=== PATIENT | male | born 1980 | race Two or more races ===

== ENCOUNTER 2016-11-29 23:28 | Emergency (ER) | payer OTHER ==
[2016-11-29 23:40] VITALS: BP 146/95; PULSE 80; TEMP 97.9; BMI 32.5
--- NOTE | 2016-11-29 23:54 | PDOC ---
History of Present Illness - General Chief Complaint: Pain Stated Complaint: PAIN Time Seen by Provider: 11/29/16 23:39 - History of Present Illness Initial Comments: This 36-year-old man with no known previous medical problems presents with several week history of progressive shortness of breath with exertion associated with chest discomfort. Today, patient was visiting his family in the area . He was brought here by family members for evaluation. Patient states that over the last several weeks he has not able to use treadmill at his gym because of shortness of breath after several minutes, even at low rate of speed. Sometimes shortness of breath is accompanied by chest tightness which he describes as occurring in the middle of his chest. He has not had wheezing/ cough/fever. Family member has taken the patient's blood pressure in the past on home monitor and it is commonly elevated(systolic as high as 200 mmHg). Patient states that he has taken multiple stimulants in the past including cocaine but has not used any for more than 10 years. He also has a history of using anabolic steroids. Coronary artery disease risk factors: Positive for family history(father had first MA in 40s reportedly). No diagnosis of hypertension has been made. He has no history of diabetes mellitus, hyperlipidemia or smoking On no medications No known ALLERGIES Past History - Past Medical History Allergies/Adverse Reactions: Allergies Allergy/AdvReac Type Severity Reaction Status Date / Time No Known Allergies Allergy Unverified 11/29/16 23:36 Home Medications: Ambulatory Orders Atorvastatin Ca [Lipitor] 20 mg PO HS #14 tablet 11/30/16 - Psycho/Social/Smoking Cessation Hx Anxiety: No Suicidal Ideation: No Smoking History: Never smoked Review of Systems - Review of Systems Able to Perform ROS?: Yes Comments:: 12 point review of systems is negative except for what is noted in the history of present illness *Physical Exam - Vital Signs Last Vital Signs Temp Pulse Resp BP Pulse Ox 97.9 F 80 16 146/95 100 11/29/16 23:36 11/29/16 23:36 11/29/16 23:36 11/29/16 23:36 11/29/16 23:36 - Physical Exam Comments: GENERAL: Adult male, alert and oriented 3, in no acute distress HEAD: Normal with no signs of trauma. EYES: PERRLA, EOMI, sclera anicteric, conjunctiva clear. ENT: Ears normal, nares patent, oropharynx clear without exudates. Dry mucous membranes. NECK: Normal range of motion, supple without lymphadenopathy, JVD, or masses. LUNGS: Breath sounds equal, clear to auscultation bilaterally. No wheezes, and no crackles. HEART:Regular rate and rhythm, normal S1 and S2 without murmur, rub or gallop. ABDOMEN:.normal bowel sounds No guarding,tenderness or rebound.No masses No distention. EXTREMITIES: Normal range of motion, no edema. No clubbing or cyanosis. No erythema, or tenderness. NEUROLOGICAL: Cranial nerves II through XII grossly intact. Normal speech. No focal neurological deficits. MUSCULOSKELETAL: Back non-tender to palpation, no CVA tenderness SKIN: Warm, Dry, normal turgor, no rashes or lesions noted. 12-lead electrocardiogram is performed and interpreted by me. This shows normal sinus rhythm at 80 bpm; axis, intervals and wave forms are all normal. ED Treatment Course - LABORATORY CBC & Chemistry Diagram: 11/30/16 00:30 11/30/16 00:30 Progress Note - Progress Note Progress Note: This 36-year-old man without significant past medical history presents with several weeks of exertional shortness of breath and chest pain. Patient and family member accompanying him have stated that he has had elevated blood pressure readings on home monitor in the last several weeks. There is a family history of coronary artery disease, hypertension and hyperlipidemia. Blood pressure on presentation now is 146/95. Exam, as noted, is normal. Twelve-lead electrocardiogram is performed and shows normal sinus rhythm at 80 bpm; waveforms, axis and intervals are all normal. No evidence of acute ST or T -wave abnormalities. CBC, chemistry profile and cardiac enzymes will be sent Because of the patient's strong family history of hyperlipidemia, family members asked if lipid profile could be performed, although patient is not fasting currently. Laboratory evaluation, including cardiac enzymes, essentially normal Nonfasting lipid profile shows marked increase in triglycerides as well as LDL. It was strongly suggested to the patient that he follow up with a medical doctor within the next 48 hours. The patient does not live in the area (lives in [place], [place]) but family members state that patient will be followed up in the very near future. They asked if staff and drug could be prescribed until he is seen by a general medical doctor and prescription for Lipitor 20 mg daily will be transmitted to his pharmacy. Patient should return to the nearest medical facility immediately if he has persistent chest pain/shortness of breath, especially if it occurs at rest. All laboratory studies and electrocardiogram duplicate provided for the patient. *DC/Admit/Observation/Transfer Diagnosis at time of Disposition: Hyperlipidemia Qualifiers: Hyperlipidemia type: unspecified Qualified Code(s): E78.5 - Hyperlipidemia, unspecified - Discharge Dispostion Disposition: HOME Condition at time of disposition: Stable - Prescriptions Prescriptions: Atorvastatin Ca [Lipitor] 20 mg PO HS #14 tablet - Patient Instructions Printed Discharge Instructions: High Triglycerides, High Blood Pressure, Low- Sodium Diet Additional Instructions: Followup with general doctor within 48 hours Low-sodium diet Return to ER if you have sustained chest pain or shortness of breath
[2016-11-30 01:13] LABS: BASOPHIL 0.3 % (0-2.0); EOSINOPHIL 2.3 % (0-4.5); MCHC 34.7 g/dl (32.0-35.9); MEAN CELL VOLUME 86.5 fl (80-96); MEAN PLT VOLUME 8.9 fl (7.5-11.1); NEUTROPHILS 60.4 % (42.8-82.8); PLATELET COUNT 197 K/MM3 (134-434); RDW 15.1 % (11.9-15.9); WHITE BLOOD COUNT 8.8 K/mm3 (4.0-10.0)
[2016-11-30 01:26] LABS: INR 1.12 (0.82-1.09); PROTHROMBIN TIME (PATIENT) 12.3 SEC (9.98-11.88)
[2016-11-30 01:43] LABS: TROPONIN I < 0.02 ng/ml (0.00-0.05)
[2016-11-30 01:58] LABS: ALBUMIN 4.3 g/dl (3.4-5.0); ANION GAP 11 (8-16); CALCIUM 8.7 mg/dL (8.5-10.1); CHOLESTEROL 328 mg/dL (50-200); CO2 29 mmol/L (21-32); CREATININE 0.9 mg/dL (0.7-1.3); GLUCOSE,RANDOM 92 mg/dL (74-106); SGOT/AST 36 U/L (15-37); SGPT/ALT 47 U/L (12-78)
[2016-11-30 02:01] LABS: ALK PHOS 51 U/L (45-117); TOT PROT 7.2 g/dl (6.4-8.2)
[2016-11-30 04:11] LABS: LDL CHOLESTEROL (ONLY SJRH) 231 mg/dL (5-100)
--- NOTE | 2016-12-01 08:35 | EKG ---
Test Reason : Blood Pressure : / mmHG Vent. Rate : 080 BPM Atrial Rate : 080 BPM P-R Int : 152 ms QRS Dur : 088 ms QT Int : 380 ms P-R-T Axes : 061 -01 012 degrees QTc Int : 438 ms SINUS RHYTHM NONSPECIFIC T WAVE ABNORMALITY NO PREVIOUS ECGS AVAILABLE Confirmed by EVERETT FRANCOIS MD ([id number]) on 12/01/2016 8:35:39 AM Referred By: MD WARD Confirmed By:EVERETT FRANCOIS MD
== END 2016-11-30 02:26 | disposition home or self-care (01) ==
LOC: FER 23:28
DX: E78.5 Hyperlipidemia, unspecified (principal)
CPT/HCPCS: 36415; 80053; 80061; 82550; 82553; 83721; 84484; 85025; 85610; 93005; 99281-25

== ENCOUNTER 2017-06-29 08:56 | Emergency (ER) | payer OTHER ==
[2017-06-29 09:02] VITALS: BP 162/73; PULSE 72; TEMP 97.5; BMI 31.1
--- NOTE | 2017-06-29 09:45 | PDOC ---
History of Present Illness - General Chief Complaint: Rash Stated Complaint: RASH Time Seen by Provider: 06/29/17 09:29 History Source: Patient Exam Limitations: No Limitations - History of Present Illness Initial Comments: 06/29/17 09:37 Patient is a 37 y/o male history of hypertension and high cholesterol presents with generalized urticaria and wheals. Patient denies any new lotion soaps or detergents, no new medications no new foods. Is requesting something for the itching. Denies any respiratory difficulty, no difficulty swallowing, no fever. Denies any other symptoms. Past Medical History: [Denies]. Allergies: No known allergies Medications: [None] Family History: Non-contributory Social History: Denies smoking, alcohol use, or IVDU Review of Systems GENERAL/CONSTITUTIONAL: [No fever or chills. No weakness. No weight change.] HEAD, EYES, EARS, NOSE AND THROAT: [No change in vision. No ear pain or discharge. No sore throat. ] CARDIOVASCULAR: [No chest pain or shortness of breath.] RESPIRATORY: [No cough, wheezing, or hemoptysis.] GASTROINTESTINAL: [No nausea, vomiting, diarrhea or constipation. No rectal bleeding.] GENITOURINARY: [No dysuria, frequency, or change in urination.] MUSCULOSKELETAL: [No joint or muscle swelling or pain. No neck or back pain.] SKIN: [Generalized pruritic rash.] NEUROLOGIC: [No headache, vertigo, loss of consciousness, or loss of sensation.] PSYCHIATRIC: [No depression or anxiety.] ENDOCRINE: [No increased thirst. No abnormal weight change.] HEMATOLOGIC/LYMPHATIC: [No anemia, easy bleeding, or history of blood clots.] ALLERGIC/IMMUNOLOGIC: [No hives or skin allergy. No latex allergy.] Physical Exam: GENERAL: [The patient is awake, alert, and fully oriented, in no acute distress. ] HEAD: [Normal with no signs of trauma.] EYES: [Pupils equal, round and reactive to light, extraocular movements intact, sclera anicteric, conjunctiva clear.] ENT: [Ears normal, nares patent, oropharynx clear without exudates. Moist mucous membranes. No uvula deviation] NECK: [Normal range of motion, supple without lymphadenopathy, JVD, or masses.] LUNGS: [Breath sounds equal, clear to auscultation bilaterally. No wheezes, and no crackles.] HEART: [Regular rate and rhythm, normal S1 and S2 without murmur, rub or gallop. ] ABDOMEN: [Soft, nontender, normoactive bowel sounds. No guarding, no rebound. No masses. No bruising or abrasions] RECTAL : [Guaiac negative, normal rectal tone.] MUSCULOSKELETAL: [Normal range of motion, no edema. No clubbing or cyanosis. No cords, erythema, or tenderness. No CVA Tenderness with fist.] NEUROLOGICAL: [Cranial nerves II through XII grossly intact. Normal speech, normal gait.] SKIN: [Generalized wheals concentrated more to upper extremities] 06/29/17 20:06 Past History - Past Medical History Allergies/Adverse Reactions: Allergies Allergy/AdvReac Type Severity Reaction Status Date / Time No Known Allergies Allergy Verified 06/29/17 08:59 Home Medications: Ambulatory Orders Atorvastatin Ca [Lipitor] 20 mg PO HS #14 tablet 11/30/16 Hydroxyzine HCl [Atarax -] 25 mg PO TID #12 tablet 06/29/17 Methylprednisolone [Medrol Dose Jose] 4 mg PO ASDIR #21 tablet 06/29/17 CVA: No COPD: No DVT: No - Immunization History Immunization Up to Date: Yes - Suicide/Smoking/Psychosocial Hx Smoking History: Never smoked Have you smoked in the past 12 months: No Information on smoking cessation initiated: No Hx Alcohol Use: No Drug/Substance Use Hx: No Substance Use Type: None *Physical Exam - Vital Signs Last Vital Signs Temp Pulse Resp BP Pulse Ox 97.5 F L 72 15 162/73 100 06/29/17 08:59 06/29/17 08:59 06/29/17 08:59 06/29/17 08:59 06/29/17 08:59 Medical Decision Making - Medical Decision Making 06/29/17 20:10 A/P: Patient here for evaluation of generalized rash will DC patient home on Medrol Dosepak and Atarax for itching, follow-up with dermatology *DC/Admit/Observation/Transfer Diagnosis at time of Disposition: Rash and nonspecific skin eruption - Discharge Dispostion Disposition: HOME Condition at time of disposition: Good Admit: No - Prescriptions Prescriptions: Hydroxyzine HCl [Atarax -] 25 mg PO TID #12 tablet Methylprednisolone [Medrol Dose Jose] 4 mg PO ASDIR #21 tablet - Referrals Referrals: Raza Phipps [Non Staff, Medical] - - Patient Instructions Printed Discharge Instructions: DI for Rash Additional Instructions: No new lotion soaps or detergents please take medication as prescribed and follow up as soon as possible with dermatology. - Post Discharge Activity Forms/Work/School Notes: Back to Work
== END 2017-06-29 09:51 | disposition home or self-care (01) ==
LOC: JERFT 08:56
DX: L50.9 Urticaria, unspecified (principal); I10 Essential (primary) hypertension; E78.00 Pure hypercholesterolemia, unspecified
CPT/HCPCS: 99281-25